=== PATIENT | female | born 1980 | race African-American/Black ===

== ENCOUNTER 2017-05-12 18:48 | Emergency (ER) | payer OTHER ==
[2017-05-12 19:55] LABS: URINE HCG POC HCG NEGATIVE (Negative)
== END 2017-05-12 20:36 | disposition home or self-care (01) ==
LOC: ER 18:48
DX: S46.811A Strain of other muscles, fascia and tendons at shoulder and upper arm level, right arm, initial encounter (principal); S29.012A Strain of muscle and tendon of back wall of thorax, initial encounter; I10 Essential (primary) hypertension; E28.2 Polycystic ovarian syndrome; V49.49XA Driver injured in collision with other motor vehicles in traffic accident, initial encounter; Y93.89 Activity, other specified; Y99.8 Other external cause status; Y92.488 Other paved roadways as the place of occurrence of the external cause
CPT/HCPCS: 72128; 81025; 99284

== ENCOUNTER 2017-08-21 20:11 | Emergency (ER) | payer OTHER ==
[2017-08-21 20:32] LABS: URINE HCG POC HCG POSITIVE (Negative)
[2017-08-21 20:38] LABS: BILIRUBIN,URINE NEGATIVE (NEG); CLARITY,URINE CLEAR; COLOR,URINE YELLOW; GLUCOSE,URINE NEGATIVE (NEG); NITRITE,URINE NEGATIVE (NEG); PH,URINE 5.5; PROTEIN,URINE NEGATIVE (NEG-TRACE); UROBILINOGEN,URINE 0.2 mg/dL (0.2 mg/dL)
[2017-08-21 20:43] LABS: RBC,URINE 0 /HPF (0-2)
[2017-08-21 20:44] LABS: ADD MAN DIFF? NO; BACTERIA,URINE FEW /HPF (0-FEW); SQUAMOUS EPITHELIAL CELL,UR MANY /LPF
[2017-08-21 20:49] LABS: BASO # 0.1 x10^3/uL (0.0-0.2); BASO % 1 % (0-3); EOS # 0.3 x10^3/uL (0.0-0.7); EOS % 3 % (0-3); HEMATOCRIT 37.6 % (36.0-47.0); HEMOGLOBIN 12.6 g/dL (12.0-15.5); LYMPH # 3.5 x10^3/uL (1.0-4.8); LYMPH % 34 % (24-48); MEAN CORPUSCULAR HEMOGLOBIN 32 pg (25-35); MEAN CORPUSCULAR HGB CONC 34 g/dL (31-37); MEAN CORPUSCULAR VOLUME 94 fL (79-100); MONO % 9 % (0-9); NEUT # 5.5 x10^3uL (1.8-7.7); NEUT % 53 % (31-73); PLATELET COUNT 339 x10^3/uL (140-400); RED CELL DISTRIBUTION WIDTH 12.4 % (11.5-14.5); WHITE BLOOD COUNT 10.3 x10^3/uL (4.0-11.0)
[2017-08-21 20:55] LABS: ANION GAP 10 (6-14); BLOOD UREA NITROGEN 9 mg/dL (7-20); BUN/CREATININE RATIO 10 (6-20); CALCIUM 8.8 mg/dL (8.5-10.1); CARBON DIOXIDE 26 mmol/L (21-32); CHLORIDE 102 mmol/L (98-107); CREATININE 0.9 mg/dL (0.6-1.0); GFR 86.2; GLUCOSE 99 mg/dL (70-99); POTASSIUM 3.8 mmol/L (3.5-5.1); SODIUM 138 mmol/L (136-145)
[2017-08-21 21:00] LABS: ALBUMIN 3.4 g/dL (3.4-5.0); ALBUMIN/GLOBULIN RATIO 0.7 (1.0-1.7); ALK PHOS 69 U/L (46-116); ALT (SGPT) 20 U/L (14-59); AST (SGOT) 27 U/L (15-37); LIPASE 386 U/L (73-393); TOTAL BILIRUBIN 0.5 mg/dL (0.2-1.0); TOTAL PROTEIN 8.4 g/dL (6.4-8.2)
[2017-08-21] MEDS: fentaNYL PF VIAL 100 MCG/2 ML VIAL IV (21:24)
[2017-08-21] MEDS: ONDANSETRON PF 4 MG/2 ML VIAL. IV (21:24)
[2017-08-21] MEDS: IV NORMAL SALINE 1000ML BAG 1,000 ML IV (21:25)
[2017-08-21] MEDS ORDERED: IV NORMAL SALINE 1000ML BAG 1,000 ML IV (23:15)
[2017-08-21] MEDS ORDERED: ONDANSETRON PF 4 MG/2 ML VIAL. IV (23:15)
[2017-08-22] MEDS: ONDANSETRON PF 4 MG/2 ML VIAL. IV (01:07)
[2017-08-22] MEDS: METHOTREXATE SODIUM 50 MG/2 ML VIAL IM (01:08)
[2017-08-22] MEDS: MORPHINE SULFATE 4 MG/ML DISP.SYRIN. IV (01:18)
== END 2017-08-22 01:20 | disposition home or self-care (01) ==
LOC: ER 20:11 → 3 NORTH 23:06
DX: O26.891 Other specified pregnancy related conditions, first trimester (principal); R10.32 Left lower quadrant pain; R10.2 Pelvic and perineal pain; O16.1 Unspecified maternal hypertension, first trimester; O99.281 Endocrine, nutritional and metabolic diseases complicating pregnancy, first trimester; E28.2 Polycystic ovarian syndrome; Z3A.01 Less than 8 weeks gestation of pregnancy
CPT/HCPCS: 36415; 76801; 76817; 80053; 81001; 81025; 83690; 84702; 85025; 86901; 96361; 96372; 96374; 96375; 96376; 99285-25; J2270; J2405; J3010; J7030

== ENCOUNTER → 2017-09-02 | Day surgery (SDC) | payer OTHER ==
[~2017-09-02] MED LIST: DESFLURANE 61 TO 120 MINUTES IH; FAMOTIDINE 20 MG/2 ML VIAL; GLYCOPYRROLATE 1 MG/5 ML VIAL.; LIDOCAINE 1% PF 2 ML VIAL. ID; LIDOCAINE 2% PF Vial for OR 5 ML VIAL.; MIDAZOLAM HCL/PF 2 MG/2 ML VIAL.; MORPHINE SULFATE 4 MG/ML DISP.SYRIN. IV; NEOSTIGMINE METHYLSULFATE 5 MG/5 ML SYRINGE.; ONDANSETRON PF 4 MG/2 ML VIAL.; ONDANSETRON PF 4 MG/2 ML VIAL. IV; PROCHLORPERAZINE 10 MG/2 ML VIAL. IV; PROPOFOL 20 ML IV; ROCURONIUM 50 MG/5 ML VIAL.; fentaNYL PF VIAL 100 MCG/2 ML VIAL; fentaNYL PF VIAL 100 MCG/2 ML VIAL IV
[2017-09-02] MEDS: IV RINGERS,LACTATED 1000ML 1,000 ML IV (11:28)
[2017-09-02 11:39] LABS: ADD MAN DIFF? NO
[2017-09-02 11:45] LABS: BASO # 0.1 x10^3/uL (0.0-0.2); BASO % 1 % (0-3); EOS # 0.1 x10^3/uL (0.0-0.7); EOS % 2 % (0-3); HEMATOCRIT 36.8 % (36.0-47.0); HEMOGLOBIN 12.4 g/dL (12.0-15.5); LYMPH # 2.3 x10^3/uL (1.0-4.8); LYMPH % 33 % (24-48); MEAN CORPUSCULAR HEMOGLOBIN 32 pg (25-35); MEAN CORPUSCULAR HGB CONC 34 g/dL (31-37); MEAN CORPUSCULAR VOLUME 95 fL (79-100); MONO # 0.6 x10^3/uL (0.0-1.1); MONO % 9 % (0-9); NEUT # 3.7 x10^3uL (1.8-7.7); NEUT % 55 % (31-73); PLATELET COUNT 288 x10^3/uL (140-400); RED BLOOD COUNT 3.89 x10^6/uL (3.50-5.40); RED CELL DISTRIBUTION WIDTH 12.3 % (11.5-14.5); WHITE BLOOD COUNT 6.8 x10^3/uL (4.0-11.0)
[2017-09-02] MEDS: BUPIVACAINE-EPI 0.25%-1:200000 50 ML VIAL. (15:01)
[2017-09-02] MEDS: METOCLOPRAMIDE HCL 10 MG/2 ML VIAL. IV (15:57)
== END ==
LOC: SURG 10:52
DX: O00.91 Unspecified ectopic pregnancy with intrauterine pregnancy (principal); Z3A.01 Less than 8 weeks gestation of pregnancy
CPT/HCPCS: 36415; 76817; 85025; 86850; 86900; 86901; A7015; C1782; J0690; J2250; J2405; J2704; J2710; J2765; J3010; J3490; J7030; J7120; S0028

== ENCOUNTER 2020-05-12 14:41 | Emergency (ER) | payer OTHER ==
[~2020-05-12] VITALS: Ht 162.6 cm; Wt 75.0 kg
[~2020-05-12 14:41] MED LIST changes: +CYCL5TAB PO; -DESFLURANE 61 TO 120 MINUTES IH; -FAMOTIDINE 20 MG/2 ML VIAL; -GLYCOPYRROLATE 1 MG/5 ML VIAL.; +IBUP-1007 PO; +IBUP200T44 PO; -LIDOCAINE 1% PF 2 ML VIAL. ID; -LIDOCAINE 2% PF Vial for OR 5 ML VIAL.; +METF500T16 PO; -MIDAZOLAM HCL/PF 2 MG/2 ML VIAL.; -MORPHINE SULFATE 4 MG/ML DISP.SYRIN. IV; -NEOSTIGMINE METHYLSULFATE 5 MG/5 ML SYRINGE.; -ONDANSETRON PF 4 MG/2 ML VIAL.; -ONDANSETRON PF 4 MG/2 ML VIAL. IV; +PHEN37.53 PO; -PROCHLORPERAZINE 10 MG/2 ML VIAL. IV; -PROPOFOL 20 ML IV; -ROCURONIUM 50 MG/5 ML VIAL.; +TRAM-48 PO; +TRIA1TAB3 PO; -fentaNYL PF VIAL 100 MCG/2 ML VIAL; -fentaNYL PF VIAL 100 MCG/2 ML VIAL IV
[2020-05-12 14:45] VITALS: BP 166/107
[2020-05-12 14:59] LABS: BILIRUBIN,URINE NEGATIVE (NEG); CLARITY,URINE CLEAR; COLOR,URINE YELLOW; NITRITE,URINE NEGATIVE (NEG); PROTEIN,URINE 100 mg/dL (NEG-TRACE)
[2020-05-12 15:07] LABS: HYALINE CASTS, URINE MANY /HPF
[2020-05-12 15:08] LABS: BACTERIA,URINE FEW /HPF (0-FEW); RBC,URINE 0 /HPF (0-2); WBC,URINE OCC /HPF (0-4)
[2020-05-12] MEDS ORDERED: CEPH-264 PO (15:23)
--- NOTE | 2020-05-12 15:24 | PHYS DOC ---
Past Medical History Past Medical History: Hypertension, Other Additional Past Medical Histor: PCOS Past Surgical History: Other Additional Past Surgical Histo: OVARY EXPLORATORY, ECTOPIC PREG. SURGERY Smoking Status: Never Smoker Alcohol Use: Occasionally Drug Use: Marijuana General Adult EDM: Chief Complaint: URINARY FREQUENCY HPI: HPI: Patient is a 39 year old female who presents with urinary frequency for the last week. She states after she urinates she feels like she still needs to go. She states that she is not having excessive thirst. She denies any vaginal discharge, burning with urination, abdominal pain, nausea, vomiting, fever, back pain, diarrhea. Patient has a history of PCOS and hypertension. Review of Systems: Review of Systems: Constitutional: Denies fever or chills. [] Eyes: Denies change in visual acuity. [] HENT: Denies nasal congestion or sore throat. [] Respiratory: Denies cough or shortness of breath. [] Cardiovascular: Denies chest pain or edema. [] GI: Denies abdominal pain, nausea, vomiting, bloody stools or diarrhea. [] : Denies dysuria. + Urinary frequency [] Musculoskeletal: Denies back pain or joint pain. [] Integument: Denies rash. [] Neurologic: Denies headache, focal weakness or sensory changes. [] Endocrine: Denies polyuria or polydipsia. [] Lymphatic: Denies swollen glands. [] Psychiatric: Denies depression or anxiety. [] Heart Score: Risk Factors: Risk Factors: DM, Current or recent (<one month) smoker, HTN, HLP, family history of CAD, obesity. Risk Scores: Score 0 - 3: 2.5% MACE over next 6 weeks - Discharge Home Score 4 - 6: 20.3% MACE over next 6 weeks - Admit for Clinical Observation Score 7 - 10: 72.7% MACE over next 6 weeks - Early Invasive Strategies Allergies: Allergies: Allergies Coded Allergies Type Severity Reaction Last Updated Verified No Known Drug Allergies 09/02/17 No Physical Exam: PE: Constitutional: Well developed, well nourished, no acute distress, non-toxic appearance. [] HENT: Normocephalic, atraumatic, bilateral external ears normal, oropharynx moist, no oral exudates, nose normal. [] Eyes: PERRLA, EOMI, conjunctiva normal, no discharge. [] Neck: Normal range of motion, no tenderness, supple, no stridor. [] Cardiovascular:Heart rate regular rhythm, no murmur [] Lungs & Thorax: Bilateral breath sounds clear to auscultation [] Abdomen: Bowel sounds normal, soft, no tenderness, no masses, no pulsatile masses. [] Skin: Warm, dry, no erythema, no rash. [] Back: No tenderness, no CVA tenderness. [] Extremities: No tenderness, no cyanosis, no clubbing, ROM intact, no edema. [] Neurologic: Alert and oriented X 3, normal motor function, normal sensory function, no focal deficits noted. [] Psychologic: Affect normal, judgement normal, mood normal. [] Normal physical exam Current Patient Data: Labs: Laboratory Tests Test 05/12/20 14:44 05/12/20 14:53 Urine Collection Type Unknown Urine Color Yellow Urine Clarity Clear Urine pH 6.0 (<5.0-8.0) Urine Specific [place] 1.025 (1.000-1.030) Urine Protein 100 mg/dL (NEG-TRACE) Urine Glucose (UA) Negative mg/dL (NEG) Urine Ketones (Stick) Negative mg/dL (NEG) Urine Blood Negative (NEG) Urine Nitrite Negative (NEG) Urine Bilirubin Negative (NEG) Urine Urobilinogen Dipstick 1.0 mg/dL (0.2 mg/dL) Urine Leukocyte Esterase Negative (NEG) Urine RBC 0 /HPF (0-2) Urine WBC Occ /HPF (0-4) Urine Squamous Epithelial Cells Mod /LPF Urine Bacteria Few /HPF (0-FEW) Urine Hyaline Casts Many /HPF Urine Mucus Marked /LPF POC Urine HCG, Qualitative Hcg negative (Negative) EKG: EKG: [] Radiology/Procedures: Radiology/Procedures: [] Course & Med Decision Making: Course & Med Decision Making Pertinent Labs and Imaging studies reviewed. (See chart for details) See HPI. Speaks in full complete sentences. No CVA tenderness. Abdomen is soft and nontender. Ambulatory with a steady gait. Skin pink warm and dry. Afebrile. Analysis looks to be contaminated. But it will be sent off for culture. I will treat her with Keflex because of her symptoms. Patient to follow-up with her primary care physician. [] Abbey Disclaimer: Abbey Disclaimer: This electronic medical record was generated, in whole or in part, using a voice recognition dictation system. Departure Departure Impression: Primary Impression: Urinary frequency Disposition: 01 DC HOME SELF CARE/HOMELESS Condition: STABLE Referrals: ISMAEL GALAVIZ DO (PCP) Patient Instructions: Urinary Frequency Additional Instructions: Follow-up with your primary care provider. Drink plenty of fluids. Take antibiotic as prescribed and with food. Scripts Cephalexin (KEFLEX) 500 Mg Capsule 1 CAP PO BID for 7 Days, #14 CAP 0 Refills Prov: VLAIDSLAV ORANTES APRN 05/12/20 VLADISLAV ORANTES APRN May 12, 2020 15:23
== END 2020-05-12 15:25 | disposition home or self-care (01) ==
LOC: ER 14:41
DX: R35.0 Frequency of micturition (principal); I10 Essential (primary) hypertension; F12.90 Cannabis use, unspecified, uncomplicated; Z98.890 Other specified postprocedural states
CPT/HCPCS: 81001; 81025; 99283

== ENCOUNTER 2020-09-29 22:47 | Emergency (ER) | payer OTHER ==
[~2020-09-29] VITALS: Ht 162.6 cm; Wt 81.8 kg
[~2020-09-29 22:47] MED LIST changes: +CEPH-264 PO
[2020-09-29 23:15] LABS: BILIRUBIN,URINE NEGATIVE (NEG); CLARITY,URINE CLEAR; COLOR,URINE YELLOW; NITRITE,URINE NEGATIVE (NEG); PH,URINE 5.5 (<5.0-8.0); PROTEIN,URINE NEGATIVE (NEG-TRACE)
[2020-09-29 23:22] LABS: BACTERIA,URINE FEW /HPF (0-FEW); RBC,URINE 0 /HPF (0-2)
--- NOTE | 2020-09-29 23:37 | PHYS DOC ---
Past Medical History Past Medical History: Hypertension, Other Additional Past Medical Histor: PCOS Past Surgical History: Other Additional Past Surgical Histo: OVARY EXPLORATORY, ECTOPIC PREG. SURGERY Smoking Status: Never Smoker Alcohol Use: Occasionally Drug Use: Marijuana General Adult EDM: Chief Complaint: ABDOMINAL PAIN IN HPI: HPI: Patient is a 39 year old female who is A3 and 18 weeks presents with the chief complaint of suprapubic and left sided abdominal pain. Onset of pain yesterday and it Pain is constant. She has associated nausea and vomiting. Review of Systems: Review of Systems: Constitutional: Denies fever or chills. [] Eyes: Denies change in visual acuity. [] HENT: Denies nasal congestion or sore throat. [] Respiratory: Denies cough or shortness of breath. [] Cardiovascular: Denies chest pain or edema. [] GI: Denies abdominal pain, nausea, vomiting, bloody stools or diarrhea. [] : Denies dysuria. [] Musculoskeletal: Denies back pain or joint pain. [] Integument: Denies rash. [] Neurologic: Denies headache, focal weakness or sensory changes. [] Endocrine: Denies polyuria or polydipsia. [] Lymphatic: Denies swollen glands. [] Psychiatric: Denies depression or anxiety. [] Heart Score: C/O Chest Pain: N/A Risk Factors: Risk Factors: DM, Current or recent (<one month) smoker, HTN, HLP, family history of CAD, obesity. Risk Scores: Score 0 - 3: 2.5% MACE over next 6 weeks - Discharge Home Score 4 - 6: 20.3% MACE over next 6 weeks - Admit for Clinical Observation Score 7 - 10: 72.7% MACE over next 6 weeks - Early Invasive Strategies Allergies: Allergies: Allergies Coded Allergies Type Severity Reaction Last Updated Verified No Known Drug Allergies 09/02/17 No Physical Exam: PE: General: alert, no acute distress. Skin: warm, dry and intact. Head:: Normocephalic, atraumatic. Neck: Trachea midline. Eyes: EOMI, Normal conjunctiva, No drainage CARDIOVASCULAR: Regular rate and rhythm RESPIRATORY: No respiratory distress Back: Full range of motion. MUSCULOSKELETAL: Full range of motion of bilateral upper and lower extremities. GASTROINTESTINAL: Abdomen soft without rebound or guarding. tender suprapubic and llq. NEUROLOGICAL: Alert and noted to person, place and time. No neurological deficits observed Psychiatric: Cooperative. Normal judgment Current Patient Data: Labs: Laboratory Tests Test 09/29/20 22:58 09/29/20 23:01 Urine Collection Type Unknown Urine Color Yellow Urine Clarity Clear Urine pH 5.5 (<5.0-8.0) Urine Specific [place] >=1.030 (1.000-1.030) Urine Protein Negative mg/dL (NEG-TRACE) Urine Glucose (UA) Negative mg/dL (NEG) Urine Ketones (Stick) 40 mg/dL (NEG) Urine Blood Negative (NEG) Urine Nitrite Negative (NEG) Urine Bilirubin Negative (NEG) Urine Urobilinogen Dipstick 1.0 mg/dL (0.2 mg/dL) Urine Leukocyte Esterase Negative (NEG) Urine RBC 0 /HPF (0-2) Urine WBC 1-4 /HPF (0-4) Urine Squamous Epithelial Cells Few /LPF Urine Bacteria Few /HPF (0-FEW) Urine Mucus Mod /LPF POC Urine HCG, Qualitative Hcg positive (Negative) EKG: EKG: [] Radiology/Procedures: Radiology/Procedures: [] Impression: []FINDINGS: Focused ultrasound images are obtained of the pelvis with transabdominal technique. Intrauterine is identified. Variable position at time of exam. movement and cardiac activity is identified with a heart beat of 144. Estimated gestational age is 18 weeks and 2 days. Estimated weight is 232 g. Placenta is visualized anteriorly extending to lateral wall. Left maternal ovary is 44 x 27 mm with vascular flow. 17 mm dominant follicle or small cyst. Right maternal ovary is 41 x 27 mm with vascular flow. IMPRESSION: * Intrauterine is identified with estimated gestational age of 18 weeks and 2 days with a positive heartbeat. Recommend routine anomaly screening as an outpatient. * The relationship of the placenta to the cervix can be evaluated later in . * Vascular flow seen to the bilateral maternal ovaries Course & Med Decision Making: Course & Med Decision Making Pertinent Labs and Imaging studies reviewed. (See chart for details) Patient was evaluated for chief complaint. Work-up consisted of laboratory analysis radiologic imaging. Results reviewed and discussed with patient. Patient's labs without acute abnormalities. Urine without signs of infection. Ultrasound performed shows intrauterine 18 weeks 2 days with a heart rate in the 140s. Dragon Disclaimer: Dragon Disclaimer: This electronic medical record was generated, in whole or in part, using a voice recognition dictation system. Departure Departure Impression: Primary Impression: Pelvic pain Additional Impression: Abdominal pain during Disposition: 01 HOME / SELF CARE / HOMELESS Condition: STABLE Referrals: ISMAEL GALAVIZ DO (PCP) Patient Instructions: Abdominal Pain During , Pelvic Pain, Female STEFANIA CUMMINS DO September 29, 2020 23:37
[2020-09-30] MEDS ORDERED: HYDROmorphone 2 MG/ML VIAL IVP ONE
[2020-09-30 00:17] LABS: BASO # 0.1 x10^3/uL (0.0-0.2); BASO % 1 % (0-3); EOS # 0.1 x10^3/uL (0.0-0.7); EOS % 1 % (0-3); HEMATOCRIT 33.2 % (36.0-47.0); HEMOGLOBIN 11.1 g/dL (12.0-15.5); LYMPH # 1.8 x10^3/uL (1.0-4.8); LYMPH % 16 % (24-48); MEAN CORPUSCULAR HEMOGLOBIN 32 pg (25-35); MEAN CORPUSCULAR HGB CONC 34 g/dL (31-37); MEAN CORPUSCULAR VOLUME 95 fL (79-100); MONO # 1.1 x10^3/uL (0.0-1.1); MONO % 10 % (0-9); NEUT # 8.3 x10^3/uL (1.8-7.7); NEUT % 73 % (31-73); PLATELET COUNT 246 x10^3/uL (140-400); RED CELL DISTRIBUTION WIDTH 13.9 % (11.5-14.5); WHITE BLOOD COUNT 11.5 x10^3/uL (4.0-11.0)
[2020-09-30 00:27] LABS: CALCIUM 8.5 mg/dL (8.5-10.1); CREATININE 0.7 mg/dL (0.6-1.0); GFR 113.3
[2020-09-30 00:32] LABS: ALBUMIN/GLOBULIN RATIO 0.7 (1.0-1.7); TOTAL BILIRUBIN 0.7 mg/dL (0.2-1.0); TOTAL PROTEIN 7.1 g/dL (6.4-8.2)
--- NOTE | 2020-09-30 00:55 | RAD ---
INDICATION: Reason: abdominal pain 18 / Spl. Instructions: / History: COMPARISON: None. FINDINGS: Focused ultrasound images are obtained of the pelvis with transabdominal technique. Intrauterine is identified. Variable position at time of exam. movement and car diac activity is identified with a heart beat of 144. Estimated gestational age is 18 weeks and 2 days. Estimated weight is 232 g. Placenta is visualized anteriorly extending to lateral wall . Left maternal ovary is 44 x 27 mm with vascular flow. 17 mm dominant follicle or small cyst. Right maternal ovary is 41 x 27 mm with vascular flow. IMPRESSION: * Intrauterine is identified with estimated gestational age of 18 weeks and 2 days with a positive heartbeat. Recommend routine anomaly screening as an outpatient. * The relationship of the placenta to the cervix can be evaluated later in . * Vascular flow seen to the bilateral maternal ovaries Electronically signed by: Hussein Oliva MD (09/30/2020 12:53 AM) [id number]
[2020-09-30 01:31] VITALS: BP 115/67
== END 2020-09-30 02:00 | disposition home or self-care (01) ==
LOC: ER 22:47
DX: O26.892 Other specified pregnancy related conditions, second trimester (principal); R10.32 Left lower quadrant pain; R10.2 Pelvic and perineal pain; R11.2 Nausea with vomiting, unspecified; O16.2 Unspecified maternal hypertension, second trimester; Z3A.18 18 weeks gestation of pregnancy
CPT/HCPCS: 36415; 76815; 80053; 81001; 81025; 83690; 84702; 85025; 99285-25